=== PATIENT | male | born 1990 | race Caucasian/White ===

== ENCOUNTER 2020-01-27 07:27 | Emergency (ER) | payer OTHER ==
[2020-01-27 07:50] VITALS: BP 146/99
--- NOTE | 2020-01-27 08:05 | RADIOLOGY REPORT (SQ) ---
EXAM DESCRIPTION: ANKLE LEFT COMPLETE IMAGES COMPLETED DATE/TIME: 01/27/2020 7:48 am REASON FOR STUDY: bed 14- rolled ankle- swelling +tenderness COMPARISON: None. NUMBER OF VIEWS: Three views. TECHNIQUE: AP, lateral, and oblique radiographic images acquired of the left ankle. LIMITATIONS: None. FINDINGS: MINERALIZATION: Normal. BONES: No acute fracture or dislocation. No worrisome bone lesions. JOINTS: No effusions. SOFT TISSUES: No soft tissue swelling. No foreign body. OTHER: No other significant finding. IMPRESSION: NEGATIVE STUDY OF THE LEFT ANKLE. NO RADIOGRAPHIC EVIDENCE OF ACUTE INJURY. TECHNICAL DOCUMENTATION: JOB ID: [id number] [email or web address] All Rights Reserved Reading location - IP/workstation name: [email or web address]
--- NOTE | 2020-01-27 08:32 | ER Document Report ---
ED Extremity Problem, Lower - General Chief Complaint: Ankle Injury Stated Complaint: ANKLE INJURY Time Seen by Provider: 01/27/20 08:13 Notes: CHIEF COMPLAINT: Left ankle injury HPI: 29-year-old male who works for [employer] rolled his ankle while on a call. Complains of pain over the anterior aspect of the left ankle. Now with some numbness and tingling over the dorsal foot into the great toe that began after the injury. States that when he steps down it feels like it is slightly unstable. Denies other injuries or complaints ROS: See HPI - all other systems were reviewed and are otherwise negative Constitutional: no fever Integumentary: no rash Allergy: no hives Musculoskeletal: + extremity pain or swelling Neurological: + numbness/tingling MEDICATIONS: I agree with the patient medications as charted by the RN. ALLERGIES: I agree with the allergies as charted by the RN. PAST MEDICAL HISTORY/PAST SURGICAL HISTORY: Reviewed and agree as charted by RN. SOCIAL HISTORY: Reviewed and agree as charted by RN. FAMILY HISTORY: No significant familial comorbid conditions directly related to patient complaint EXAM: Reviewed vital signs as charted by RN. CONSTITUTIONAL: Alert and oriented and responds appropriately to questions. Well-appearing; well-nourished HEAD: Normocephalic; atraumatic EYES: Conjunctivae clear, sclerae non-icteric ENT: normal nose; no rhinorrhea; moist mucous membranes NECK: Supple without meningismus CARD: symmetric distal pulses RESP: Normal chest excursion without splinting or tachypnea ABD/GI: non-distended BACK: The back appears normal EXT: Normal ROM in all joints; there is no visible bruising or swelling to the left foot and ankle. There is no tenderness on palpation of the tarsals or metatarsals of the left foot. There is no tenderness on palpation over the medial or lateral malleolus of the left ankle. Dorsalis pedis and posterior tibial pulses are present in the left foot and ankle. There is mild tenderness on palpation over the anterior soft tissues of the left ankle into the proximal aspect of the anterior and dorsal left foot. Slightly subjective decreased sensation to touch over the dorsal foot into the dorsal aspect of the left great toe. Patient is able to flex and extend the toes without difficulty. There is no proximal fibular pain on palpation of the left lower extremity. SKIN: Normal color for age and race; warm; dry; good turgor; no acute lesions noted NEURO: Moves all extremities equally; Motor function intact PSYCH: The patient's mood and manner are appropriate. Grooming and personal hygiene are appropriate. MDM: 29-year-old male with injury to the left ankle likely a soft tissue injury or ligamentous injury. X-ray shows no evidence of fracture. Slightly decreased sensation over the dorsum of the foot that began after the injury which may be just related to soft tissue swelling over the ligamentous injury itself. Will place patient in an Aircast weightbearing as tolerated anti-inflammatories orthopedic follow-up - Related Data Allergies/Adverse Reactions: cefaclor [From Ceclor] Allergy (Verified 01/27/20 07:59) Past Medical History - Social History Smoking Status: Former Smoker Chew tobacco use (# tins/day): No Frequency of alcohol use: None Drug Abuse: None Family History: Reviewed & Not Pertinent Patient has homicidal ideation: No Physical Exam - Vital signs Vitals: Temp Pulse Resp BP Pulse Ox 97.8 F 73 20 146/99 H 99 01/27/20 07:35 01/27/20 07:35 01/27/20 07:35 01/27/20 07:35 01/27/20 07:35 Course - Vital Signs Vital signs: Temp Pulse Resp BP Pulse Ox 97.8 F 73 20 146/99 H 99 01/27/20 07:35 01/27/20 07:35 01/27/20 07:35 01/27/20 07:35 01/27/20 07:35 Procedures - Immobilization Left Distal Ankle Time completed: 08:30 Pre-Proc Neuro Vasc Exam: Normal Immobilizer type: Ankle stirrup Performed by: RN Post-Proc Neuro Vasc Exam: Abnormal - Slightly decreased sensation over the anterior and dorsal foot, Unchanged from pre-exam Alignment checked and good: Yes Discharge - Discharge Clinical Impression: Left ankle sprain Qualifiers: Encounter type: initial encounter Involved ligament of ankle: unspecified ligament Qualified Code(s): S93.402A - Sprain of unspecified ligament of left ankle, initial encounter Condition: Stable Disposition: HOME, SELF-CARE Additional Instructions: 1. ice and elevate the lower extremity as much as possible 2. Weightbearing as tolerated with the brace on 3. medications for pain as prescribed 4. follow up with orthopedics for further evaluation and treatment, call for appt. Prescriptions: Diclofenac Sodium [Voltaren 50 Mg Tablet.] 50 mg PO BID #20 tablet. Referrals: MOHAN ROQUE JR, DO [ACTIVE PROVISIONAL STAFF] - Follow up as needed
== END 2020-01-27 08:30 | disposition home or self-care (01) ==
LOC: ER 07:27
PROC: 2W3RX1Z Immobilization of Left Lower Leg using Splint (ICD-10-PCS; principal; 2020-01-27)
DX: S93.402A Sprain of unspecified ligament of left ankle, initial encounter (principal); R20.0 Anesthesia of skin; M25.572 Pain in left ankle and joints of left foot; X50.1XXA Overexertion from prolonged static or awkward postures, initial encounter; M79.89 Other specified soft tissue disorders; Z88.1 Allergy status to other antibiotic agents; Z87.891 Personal history of nicotine dependence
CPT/HCPCS: 99283